=== PATIENT | female | born 1995 | race American Indian/Alaskan Native ===

== ENCOUNTER 2019-02-02 02:01 | Emergency (ER) | payer SELFPAY ==
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
[2019-02-02 06:33] VITALS: BP 136/79
== END 2019-02-02 06:10 | disposition home or self-care (01) ==
LOC: ED 02:01
DX: S96.912A Strain of unspecified muscle and tendon at ankle and foot level, left foot, initial encounter (principal); F17.200 Nicotine dependence, unspecified, uncomplicated; X50.9XXA Other and unspecified overexertion or strenuous movements or postures, initial encounter; Y93.89 Activity, other specified; Y92.89 Other specified places as the place of occurrence of the external cause; Y99.8 Other external cause status